=== PATIENT | male | born 1980 | race African-American/Black ===

== ENCOUNTER → 2024-04-19 | Emergency (ER) | payer OTHER ==
[~2024-04-19] VITALS: Ht 180.3 cm; Wt 7.7 kg
[2024-04-19 20:53] VITALS: BP 124/90; PULSE 110; RESP 16; TEMP 97.9; O2SAT 100
== END | disposition left against medical advice (07) ==
LOC: EMS 20:47
DX: M79.641 Pain in right hand (principal); Z53.21 Procedure and treatment not carried out due to patient leaving prior to being seen by health care provider
CPT/HCPCS: 73130-TC

== ENCOUNTER 2024-04-20 08:44 | Emergency (ER) | payer OTHER ==
[~2024-04-20] VITALS: Ht 180.3 cm; Wt 77.3 kg
[2024-04-20 09:06] VITALS: BP 143/94; PULSE 109; RESP 16; TEMP 98; O2SAT 98
== END 2024-04-20 09:47 | disposition home or self-care (01) ==
LOC: EMS 08:44
DX: S62.306A Unspecified fracture of fifth metacarpal bone, right hand, initial encounter for closed fracture (principal); F12.90 Cannabis use, unspecified, uncomplicated; F17.210 Nicotine dependence, cigarettes, uncomplicated; W23.1XXA Caught, crushed, jammed, or pinched between stationary objects, initial encounter; Y93.89 Activity, other specified; Y92.89 Other specified places as the place of occurrence of the external cause; Y99.8 Other external cause status
CPT/HCPCS: 99283